=== PATIENT | male | born 1960 | race Caucasian/White ===

== ENCOUNTER 2017-01-27 19:12 | Emergency (ER) | payer BC ==
[~2017-01-27 19:12] MED LIST: Iopamidol 370 76% 100 ML VIAL ONE
[2017-01-27 19:42] LABS: #Basophils 0.2 thou/uL (0.0-0.2); #Eosinphils 0.3 thou/uL (0.0-0.7); #Lymphocytes 3.4 thou/uL (1.20-3.40); #Neutrophils 5.1 thou/uL (1.40-6.50); %Basophils 1.5 % (0.0-1.0); %Eosinophils 2.9 % (0.0-10.0); %Lymphocytes 34.2 % (21.0-51.0); %Monocytes 9.9 % (0.0-10.0); Hematocrit 45.6 % (42.0-52.0); Mean Platelet Volume 9.4 fL (7.4-10.4); Red Blood Cell (RBC) Count 5.03 mill/uL (4.70-6.10); White Blood Cell (WBC) Count 9.9 thou/uL (4.8-10.8)
[2017-01-27 19:56] LABS: ALT (SGPT) 47 U/L (8-55); AST (SGOT) 28 U/L (5-34); Alkaline Phosphatase 60 U/L (40-150); Anion Gap 12 mmol/L (10-20); BUN (Urea Nitrogen) 13 mg/dL (8.4-25.7); Bilirubin, Total 0.3 mg/dL (0.2-1.2); Calc. Creatinine Clearance 0 mL/min (70-130); Calcium 9.3 mg/dL (7.8-10.44); Carbon Dioxide 26 mmol/L (22-29); Chloride 106 mmol/L (98-107); Estimated GFR-MDRD Greater than 90; Protein, Total 7.2 g/dL (6.0-8.3)
[2017-01-27 19:59] LABS: Bilirubin Negative (Negative); Blood, Urine Trace (Negative); Glucose, Urine (Dipstick) Negative (Negative); Ketone, Urine Negative (Negative); Nitrite Negative (Negative); Protein, Urine (Dipstick) Negative (Neg-Trace); Urobilinogen 0.2 mg/dL (0.2-1.0)
[2017-01-27 20:05] LABS: Bacteria/HPF Rare-Few HPF (None Seen); RBC/HPF 0-3 HPF (0-3); Squamous Epithelial None Seen HPF (0-3); WBC/HPF None Seen HPF (0-3)
--- NOTE | 2017-01-27 21:27 | CT ---
ABDOMEN AND PELVIC CT WITH CONTRAST: Comparison: None. Indication: Abdominal pain, chronic hernia. FINDINGS: Evidence of prior cholecystectomy with prominent focal area of biliary opacification which may relate to reservoir effect, status post cholecystectomy. No evidence of adrenal mass or hydronephrosis. Spl een is unremarkable. No pancreatic inflammation. Bowel is incompletely assessed without enteric contr ast. There is no evidence of free air or portal venous gas. The imaged lung bases reveal no significa nt pathology. Imaged aorta is of normal caliber, with mild calcification. There is prominence of the prostate gland with mild internal calcification. There is a patchoulis fat containing right inguinal ring without inflammation. Small fat containing periumbilical hernia is present. There is scattered o sseous degenerative change. IMPRESSION: No acute abnormality identified. The bowel is limited in assessment without enteric contrast administ ration. POS: [facility]
== END 2017-01-27 20:35 | disposition home or self-care (01) ==
LOC: SCSER 19:12
DX: K42.9 Umbilical hernia without obstruction or gangrene (principal); F17.200 Nicotine dependence, unspecified, uncomplicated
CPT/HCPCS: 74177; 80053; 81003; 81015; 85025

== ENCOUNTER 2017-02-01 10:05 | Outpatient (CLI) | payer BC ==
--- NOTE | 2017-02-02 07:52 | EKG ---
Test Reason : Blood Pressure : / mmHG Vent. Rate : 067 BPM Atrial Rate : 067 BPM P-R Int : 212 ms QRS Dur : 084 ms QT Int : 370 ms P-R-T Axes : -03 056 071 degrees QTc Int : 390 ms Sinus rhythm with 1st degree A-V block Otherwise normal ECG When compared with ECG of 15-SEP-2009 18:30, No significant change was found Confirmed by SCAR TIRADO ([id number]) on 02/02/2017 7:51:53 AM Referred By: MARITZA Confirmed By:SCAR TIRADO
== END 2017-02-01 10:06 | disposition home or self-care (01) ==
LOC: LABBT 10:05
PROVIDERS: ATTEND Specialist
DX: Z01.818 Encounter for other preprocedural examination (principal); K42.9 Umbilical hernia without obstruction or gangrene
CPT/HCPCS: 93005; 93010

== ENCOUNTER 2017-02-04 10:19 | Day surgery (SDC) | payer BC ==
[2017-02-01 10:35] VITALS: BMI 37.8
--- NOTE | 2017-02-01 12:50 | HP ---
HISTORY OF PRESENT ILLNESS: A 56-year-old male patient who has had an umbilical hernia for more than 15 years, more recently has been bothersome. He has been in the emergency room on one occasion for evaluation where a CAT scan was performed that was normal. This was reduced, he reduced himself on a nother occasion and he desires repair. Plan is to repair this in an open fashion using mesh possibly and risks of infection, bleeding, reoperation, recurrence of hernia explained and he consents. TOBACCO: None. MEDICATIONS: None. TOBACCO: None. ALLERGIES: None. MEDICATIONS: None routinely. PAST SURGICAL HISTORY: Colonoscopy in the past, normal 2008. Dislocated knee with popliteal artery repair using vein reversed from left leg and cholecystectomy in the past, tonsillectomy, sinus surger y. PAST MEDICAL HISTORY: Noncontributory. 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 REVIEW OF SYSTEMS: Ten point noncontributory. PHYSICAL EXAMINATION: VITAL SIGNS: 256 pounds, 5 feet 9 inches, 37 BMI, 125/73, 66, 98.2 degrees. HEENT: Unremarkable. LUNGS: Clear to auscultation. CARDIAC: Regular rate and rhythm without murmur or gallop. ABDOMEN: Soft, nontender. Slightly obese. Umbilical hernia with the tube approximately 2.[address] reducible. ASSESSMENT AND PLAN: Symptomatic umbilical hernia. We will plan repair, possibly using mesh. Risk of infection, bleeding, reoperation, recurrence of hernia explained. He consents.
[2017-02-04] MEDS ORDERED: Ketorolac Tromethamine 30 MG/ML VIAL ONE (11:00)
[2017-02-04] MEDS ORDERED: CEFAZOLIN/Water 2 GM/20 ML SYRINGE ONE (11:00)
[2017-02-04] MEDS ORDERED: Bupivacaine/Epinephrine 0.25% 30 ML VIAL ONE (11:24)
[2017-02-04] MEDS ORDERED: Fentanyl 100 MCG/2 ML VIAL ONE ×2 (11:47)
--- NOTE | 2017-02-04 13:09 | OP ---
DATE OF PROCEDURE: 02/04/2017 PREOPERATIVE DIAGNOSIS: Umbilical hernia, symptomatic painful. POSTOPERATIVE DIAGNOSIS: Umbilical hernia, symptomatic painful. PROCEDURES: PVP 4.2 cm preperitoneal reinforcement of primary fascial closure of umbilical hernia pa [id number]. SURGEON: Dr. Jass Carroll ANESTHESIA: General. Local 0.25% Marcaine with epinephrine, 30 mL, mixed with 2% Xylocaine, 10 mL t otal volume mixture used. DESCRIPTION OF PROCEDURE: Patient was taken to the operating room where under general anesthesia, ab domen was clipped of hair, prepared with ChloraPrep, draped in routine fashion. Local anesthetic inf iltrated into skin and subcutaneous tissue about the operative site. Infraumbilical incision made an d carried down through the skin and subcutaneous tissue. Umbilical hernia defect identified, dissect ed free of fatty tissue superiorly and inferiorly and the preperitoneal space potentiated and dissect ed free. Good hemostasis noted as the PVP mesh 4.2 cm inserted, flattened and straps used to control it as fascia approximated [id number] with interrupted sutures of 0 PDS pop-offs incorporating m esh approximation in the fascial closure. Straps removed, knots tied. Subcutaneous tissues approxim ated converting the umbilicus to the fascia with 3-0 Monocryl and subcutaneous tissues approximated w ith continuous suture of 3-0 Monocryl and skin with continuous subcutaneous suture of 4-0 Monocryl an d DermaGlue applied. The patient tolerated the procedure well.
[2017-02-04] MEDS ORDERED: Propofol 200 MG/20 ML VIAL ONE (15:25)
[2017-02-04] MEDS ORDERED: Glycopyrrolate 0.2 MG/ML 5 ML SYRINGE ONE (15:25)
[2017-02-04] MEDS ORDERED: Lidocaine 1% PF 5 ML VIAL ONE (15:25)
[2017-02-04] MEDS ORDERED: traMADol HCl 50 MG TAB ONE (15:27)
== END 2017-02-04 15:40 | disposition home or self-care (01) ==
LOC: SDC 10:19
PROVIDERS: ATTEND Specialist
PROC: 0WUF0JZ Supplement Abdominal Wall with Synthetic Substitute, Open Approach (ICD-10-PCS; principal; 2017-02-04)
DX: K42.9 Umbilical hernia without obstruction or gangrene (principal); Z90.49 Acquired absence of other specified parts of digestive tract; Z98.890 Other specified postprocedural states
CPT/HCPCS: J0131; J1885; J2001; J2704; J3010

== ENCOUNTER 2017-02-28 21:16 | Inpatient (IN) | payer BC, OTHER ==
[2017-02-28 22:16] LABS: #Basophils 0.1 thou/uL (0.0-0.2); #Eosinphils 0.2 thou/uL (0.0-0.7); #Lymphocytes 2.1 thou/uL (1.20-3.40); #Monocytes 1.8 thou/uL (0.11-0.59); #Neutrophils 14.4 thou/uL (1.40-6.50); %Basophils 0.4 % (0.0-1.0); %Eosinophils 1.2 % (0.0-10.0); %Lymphocytes 11.3 % (21.0-51.0); %Monocytes 9.8 % (0.0-10.0); %Neutrophils 77.2 % (42.0-75.0); Hemoglobin 16.1 g/dL (14.0-18.0); Mean Corpuscular HGB CONC 33.7 g/dL (32.0-36.0); Mean Corpuscular Hemoglobin 32.1 pg (27.0-31.0); Mean Corpuscular Volume 95.1 fl (80.0-94.0); Mean Platelet Volume 7.9 fL (7.4-10.4); Platelet Count 265 thou/uL (130-400); RBC Distribution Width 12.5 % (11.5-14.5); Red Blood Cell (RBC) Count 5.02 mill/uL (4.70-6.10); White Blood Cell (WBC) Count 18.7 thou/uL (4.8-10.8)
[2017-02-28 22:36] LABS: ALT (SGPT) 36 U/L (8-55); AST (SGOT) 20 U/L (5-34); Alkaline Phosphatase 81 U/L (40-150); Anion Gap 13 mmol/L (10-20); BUN (Urea Nitrogen) 14 mg/dL (8.4-25.7); Bilirubin, Total 0.6 mg/dL (0.2-1.2); Calc. Creatinine Clearance 0 mL/min (70-130); Calcium 9.4 mg/dL (7.8-10.44); Carbon Dioxide 22 mmol/L (22-29); Chloride 104 mmol/L (98-107); Estimated GFR-MDRD Greater than 90; Globulin 3.3 g/dL (2.4-3.5); Glucose 123 mg/dL (70-105); Potassium 3.9 mmol/L (3.5-5.1); Protein, Total 7.3 g/dL (6.0-8.3); Sodium 135 mmol/L (136-145)
[2017-02-28] MEDS ORDERED: Meropenem 1 GM in Syringe 20 ML SLOW IVP SCH (23:00)
[2017-03-01 01:15] LABS: Troponin I Less than 0.010 ng/mL (< 0.028)
[2017-03-01 01:17] LABS: Bilirubin Negative (Negative); Blood, Urine Negative (Negative); Clarity CLEAR (Clear); Glucose, Urine (Dipstick) Negative (Negative); Leukocyte Negative (Negative); Nitrite Negative (Negative); Protein, Urine (Dipstick) 30 mg/dL (Neg-Trace); Specific Gravity, Urine 1.037 (1.002-1.036); Urobilinogen 0.2 mg/dL (0.2-1.0)
[2017-03-01 01:20] LABS: Bacteria/HPF None Seen HPF (None Seen); Hyaline Casts/LPF 0-3 HYALINE CAST LPF (0-3 Hyaline); Pathc Cast-AUWi Flag 0.13 (0-2.49); Squamous Epithelial 0-3 HPF (0-3); WBC/HPF 0-3 HPF (0-3)
[2017-03-01 03:53] VITALS: BMI 36.8
[2017-03-01] MEDS ORDERED: Acetaminophen 1,000 MG in Premix Bag 1 BAG IVPB PRN (05:11)
[2017-03-01 06:17] LABS: Troponin I Less than 0.010 ng/mL (< 0.028)
--- NOTE | 2017-03-01 06:57 | HP ---
CHIEF COMPLAINT: Abdominal infection. HISTORY OF PRESENT ILLNESS: The patient is a 57-year-old male, who underwent an umbilical hernia rep air with mesh on 02/04/2017. He was repaired with a 4.2 cm Proceed mesh with [id number] techniq ue. He said that he has been having some postop pain and was supposed to see Dr. Carroll about 5 days ago, but apparently he was called out for an emergency and he did not get to see him. He said that, 2 days ago, it started leaking purulent fluid and turned red. Last night, he developed a fever to 1 02. He has had nausea, no vomiting. PAST MEDICAL HISTORY: Significant for obesity PAST SURGICAL HISTORY: He had repair of popliteal artery injury from knee dislocation. He has had a knee surgery, sinus surgery, cholecystectomy as well as a tonsillectomy. MEDICATIONS: He is on no medications. FAMILY HISTORY: He has a sensitivity to HYDROCODONE. 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 PHYSICAL EXAMINATION: VITAL SIGNS: Temperature 102, pulse 100, blood pressure 138/73. GENERAL: Obese male. HEENT: Unremarkable. LUNGS: Clear. HEART: Regular rate and rhythm. ABDOMEN: He has got about 15 cm of erythema around a subumbilical incision. LABORATORY AND X-RAY FINDINGS: White count is 18.7, H and H 16 and 47, platelet count 265. Electrol ytes elevated, glucose 123. ASSESSMENT: Wound infection, cellulitis. PLAN: I and D, irrigation, wound VAC, removal of mesh. CONSENT: I have discussed the planned procedure as well as risk of bleeding, infection, recurrence o f the hernia, need for further surgery. He understands and gives informed consent.
[2017-03-01] MEDS ORDERED: Fentanyl 100 MCG/2 ML VIAL ONE ×2 (07:30)
[2017-03-01] MEDS ORDERED: Piperacillin/Tazobactam 3.375 GM VIAL ONE (08:24)
[2017-03-01] MEDS ORDERED: Morphine 4 MG/ML VIAL SLOW IVP PRN ×2 (08:51)
[2017-03-01] MEDS ORDERED: hydrALAZINE 20 MG/ML VIAL SLOW IVP PRN (08:51)
[2017-03-01] MEDS ORDERED: Ondansetron HCl/PF 4 MG/2 ML Vial IVP PRN ×2 (08:51→09:40)
[2017-03-01] MEDS ORDERED: Dextrose 5% in Water 1,000 ML IV PRN (08:51)
[2017-03-01] MEDS ORDERED: Promethazine HCl 25 MG/ML VIAL IM PRN ×2 (08:51→09:40)
[2017-03-01] MEDS ORDERED: Dextrose 50% Abboject 50 ML SYRINGE SLOW IVP PRN (08:51)
[2017-03-01] MEDS ORDERED: Acetaminophen 325 MG TAB PO PRN (08:51)
[2017-03-01] MEDS ORDERED: Vancomycin HCl 1.25 GM in Sodium Chloride 0.9% 250 ML 250 ML IVPB SCH ×2 (09:00→23:00)
--- NOTE | 2017-03-01 09:22 | OP ---
PREOPERATIVE DIAGNOSIS: Wound infection. SURGEON: Lucio Lindo M.D. PROCEDURE PERFORMED: Incision and drainage of an umbilical incision with removal of infected mesh an d primary closure of umbilical hernia with suture. INDICATIONS: This is a 57-year-old male, who is about 3 weeks status post umbilical hernia repair wi th mesh. He developed progressive painful red incision and developed fever. FINDINGS: The mesh was covered by pus, both posterior and anterior to it. Cultures were obtained. PROCEDURE: After informed consent was obtained, the patient was taken to the operating room and give n general endotracheal anesthesia. He was placed in the supine position. His abdomen was prepped an d draped in the usual fashion. A transverse incision was performed through the old scar. Subcu divi ded sharply down to the mesh. There was a pocket of very thick yellow purulent fluid that was cultur ed. Eventually, I was able to remove the old sutures as well as found the mesh. The mesh was remove d. There was pus underneath the mesh. This was irrigated and removed. Then the wound was completel y irrigated with the pulse medical billing assistant. Then the fascia was closed transversely with interrupted figur e-of-eights of #1 Prolene. Hemostasis achieved with electrocautery. Wound care was consulted to chivo chavez a wound VAC. The patient tolerated the procedure well and transferred to recovery in good conditi on. Sponge and needle count verified correct x2.
[2017-03-01] MEDS ORDERED: Promethazine HCl 25 MG/ML VIAL SLOW IVP PRN (09:40)
[2017-03-01 10:17] LABS: Vancomycin, Trough Less than 1.1 ug/mL
[2017-03-01] MEDS: Famotidine 20 MG TAB PO SCH ×3 (10:29→21:26)
[2017-03-01] MEDS: Sodium Chloride 0.9% 1,000 ML IV SCH ×2 (11:07→21:26)
[2017-03-01] MEDS: Famotidine/PF 20 mg/2ml Vial SLOW IVP SCH ×2 (11:11→21:24)
[2017-03-01] MEDS: Piperacillin/Tazobactam 3.375 GM in Sodium Chloride 0.9% 100 ML IVPB SCH ×2 (15:07→21:25)
[2017-03-01] MEDS: Ketorolac Tromethamine 30 MG/ML VIAL IVP SCH ×2 (15:07→21:25)
[2017-03-01 15:59] LABS: Vancomycin, Peak 12.6 ug/mL (20.0-40.0)
[2017-03-01] MEDS ORDERED: Lidocaine 1% PF 5 ML VIAL ONE (17:10)
[2017-03-01] MEDS ORDERED: Succinylcholine Chloride 20 MG/ML 10 ml SYRINGE FS ONE (17:10)
[2017-03-01] MEDS ORDERED: Ketorolac Tromethamine 30 MG/ML VIAL ONE (17:10)
[2017-03-01] MEDS ORDERED: Propofol 200 MG/20 ML VIAL ONE (17:10)
[2017-03-01] MEDS ORDERED: Ondansetron HCl/PF 4 MG/2 ML Vial ONE (17:10)
[2017-03-01] MEDS ORDERED: Dexamethasone 20 MG/5 ML VIAL ONE (17:10)
[2017-03-01] MEDS ORDERED: Glycopyrrolate 0.2 MG/ML 5 ML SYRINGE ONE (17:10)
[2017-03-01 22:30] LABS: Troponin I Less than 0.010 ng/mL (< 0.028)
[2017-03-02] MEDS: Piperacillin/Tazobactam 3.375 GM in Sodium Chloride 0.9% 100 ML IVPB SCH ×3 (02:55→16:03)
[2017-03-02] MEDS: Ketorolac Tromethamine 30 MG/ML VIAL IVP SCH ×4 (02:56→22:02)
[2017-03-02] MEDS ORDERED: Enoxaparin Sodium 40 MG/0.4 ML SYRINGE SC SCH (06:00)
[2017-03-02] MEDS: Sodium Chloride 0.9% 1,000 ML IV SCH ×2 (06:13→23:29)
[2017-03-02 06:15] LABS: Anion Gap 13 mmol/L (10-20); BUN (Urea Nitrogen) 12 mg/dL (8.4-25.7); Calc. Creatinine Clearance 161 mL/min (70-130); Calcium 8.9 mg/dL (7.8-10.44); Carbon Dioxide 22 mmol/L (22-29); Chloride 107 mmol/L (98-107); Estimated GFR-MDRD Greater than 90; Glucose 135 mg/dL (70-105); Potassium 4.2 mmol/L (3.5-5.1); Sodium 138 mmol/L (136-145)
[2017-03-02 06:45] LABS: Band 11 % (5-11); Hemoglobin 14.3 g/dL (14.0-18.0); Lymphocytes 14 % (21-51); MDiff Complete? YES; Mean Corpuscular HGB CONC 32.7 g/dL (32.0-36.0); Mean Corpuscular Hemoglobin 31.4 pg (27.0-31.0); Mean Corpuscular Volume 95.9 fl (80.0-94.0); Mean Platelet Volume 8.2 fL (7.4-10.4); Monocytes 4 % (0-10); Neutrophil 70 % (42-75); PLT Morphology Comment Appears Adequate; Platelet Count 242 thou/uL (130-400); RBC Distribution Width 12.4 % (11.5-14.5); RBC Morphology Normal; Reactive Lymphocytes 1 % (0-10); Red Blood Cell (RBC) Count 4.55 mill/uL (4.70-6.10); White Blood Cell (WBC) Count 26.1 thou/uL (4.8-10.8)
[2017-03-02] MEDS: Famotidine 20 MG TAB PO SCH ×2 (08:22→22:01)
[2017-03-02] MEDS: Vancomycin HCl 1.75 GM in Sodium Chloride 0.9% 500 ML IVPB SCH ×2 (11:06→23:30)
[2017-03-02] MEDS: Famotidine/PF 20 mg/2ml Vial SLOW IVP SCH ×2 (11:50→22:01)
[2017-03-02 12:04] LABS: Vancomycin, Trough 7.9 ug/mL
[2017-03-02 16:08] LABS: Vancomycin, Peak 24.2 ug/mL (20.0-40.0)
[2017-03-02] MEDS: Piperacillin-Tazo-Dextrose,Iso 3.375 GM in Premix Bag 1 BAG IVPB SCH (20:40)
[2017-03-03] MEDS: Piperacillin-Tazo-Dextrose,Iso 3.375 GM in Premix Bag 1 BAG IVPB SCH ×4 (03:31→19:49)
[2017-03-03] MEDS: Ketorolac Tromethamine 30 MG/ML VIAL IVP SCH ×4 (03:33→21:24)
[2017-03-03 05:57] LABS: #Basophils 0.1 thou/uL (0.0-0.2); #Eosinphils 0.4 thou/uL (0.0-0.7); #Lymphocytes 3.3 thou/uL (1.20-3.40); #Monocytes 1.1 thou/uL (0.11-0.59); #Neutrophils 7.6 thou/uL (1.40-6.50); %Basophils 0.5 % (0.0-1.0); %Eosinophils 3.2 % (0.0-10.0); %Lymphocytes 26.4 % (21.0-51.0); %Monocytes 8.5 % (0.0-10.0); %Neutrophils 61.5 % (42.0-75.0); Hemoglobin 13.5 g/dL (14.0-18.0); Mean Corpuscular Hemoglobin 31.8 pg (27.0-31.0); Mean Corpuscular Volume 96.4 fl (80.0-94.0); Mean Platelet Volume 8.4 fL (7.4-10.4); Platelet Count 258 thou/uL (130-400); RBC Distribution Width 12.5 % (11.5-14.5); Red Blood Cell (RBC) Count 4.26 mill/uL (4.70-6.10); White Blood Cell (WBC) Count 12.4 thou/uL (4.8-10.8)
[2017-03-03] MEDS: Enoxaparin Sodium 40 MG/0.4 ML SYRINGE SC SCH (09:34)
[2017-03-03] MEDS: Famotidine 20 MG TAB PO SCH ×2 (09:34→21:24)
[2017-03-03] MEDS: Famotidine/PF 20 mg/2ml Vial SLOW IVP SCH ×2 (10:47→21:23)
[2017-03-03] MEDS: Sodium Chloride 0.9% 1,000 ML IV SCH ×2 (10:48→19:49)
[2017-03-03] MEDS: Vancomycin HCl 1.75 GM in Sodium Chloride 0.9% 500 ML IVPB SCH ×2 (10:58→23:11)
[2017-03-04] MEDS: Piperacillin-Tazo-Dextrose,Iso 3.375 GM in Premix Bag 1 BAG IVPB SCH ×2 (02:11→09:18)
[2017-03-04] MEDS: Ketorolac Tromethamine 30 MG/ML VIAL IVP SCH ×2 (02:11→09:19)
[2017-03-04 08:20] VITALS: BP 133/86; TEMP 97.7
[2017-03-04] MEDS: Enoxaparin Sodium 40 MG/0.4 ML SYRINGE SC SCH (09:19)
[2017-03-04] MEDS: Famotidine 20 MG TAB PO SCH (09:19)
[2017-03-04] MEDS: Famotidine/PF 20 mg/2ml Vial SLOW IVP SCH (09:20)
[2017-03-04] MEDS: Sodium Chloride 0.9% 1,000 ML IV SCH (09:25)
--- NOTE | 2017-03-04 10:04 | PRG ---
DATE OF SERVICE: 03/04/2017 Mr. Martinez is doing well with the wound VAC, which has been approved for home use. He has an [facility] appointment for change on Tuesday and . Cultures reveal Streptococcus. The patient has been on vancomycin and Zosyn. ABDOMEN: Soft cellulitis, resolved. Wound VAC in place, changed yesterday due to change next week. ASSESSMENT AND PLAN: Infected mesh, requiring mesh removal, performed by Dr. Lindo in my absence. W ound was repaired primarily without mesh. Currently, the patient is doing well. He is being dischar [facility] home with Augmentin for 7 days and follow up in my office in a week or two. 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
--- NOTE | 2017-03-04 10:11 | DIS ---
DATE OF ADMISSION: 02/28/2017 DATE OF DISCHARGE: 03/04/2017 DISCHARGE DIAGNOSES: Infected mesh, umbilical hernia site, hernia performed on 02/04/2017 by me. HOSPITAL COURSE: Patient underwent the above-mentioned umbilical hernia repair with mesh on 02/05/20 17 and was seen in my office last week, noted purulent drainage after that visit. Prior to presentin g to the hospital, seen by Dr. Lindo in my absence, undergoing on 03/01/2017, removal of umbilical me sh, drainage of abscess, culture revealed Streptococcus. The umbilical hernia was repaired with #1 P rolene [id number] sutures. The patient had a wound VAC postoperatively, cellulitis resolved wit h vancomycin and Zosyn and is sent home with Augmentin for 7 days. He has an outpatient wound care a ppointment and he will follow up with Dr. Carroll in 2 weeks, but I will see him in the outpatient wou nd care next week.
== END 2017-03-04 12:35 | disposition home or self-care (01) | DRG 857 ==
LOC: ERS 21:16 → SURG A 22:20
PROVIDERS: ADMIT Surgery; ATTEND Surgery
PROC: 0WPF0JZ Removal of Synthetic Substitute from Abdominal Wall, Open Approach (ICD-10-PCS; principal; 2017-03-01)
PROC: 0WQF0ZZ Repair Abdominal Wall, Open Approach (ICD-10-PCS; 2017-03-01)
DX: T81.4XXA Infection following a procedure, initial encounter (principal); T85.79XA Infection and inflammatory reaction due to other internal prosthetic devices, implants and grafts, initial encounter; L03.311 Cellulitis of abdominal wall; B95.5 Unspecified streptococcus as the cause of diseases classified elsewhere; E66.9 Obesity, unspecified; Z68.36 Body mass index [BMI] 36.0-36.9, adult; Z88.5 Allergy status to narcotic agent
CPT/HCPCS: 36415; 80048; 80053; 80202; 81001; 84484; 85025; 87040; 87070; 87077; 87205; 96374; 99406; A4216; J0131; J1100; J1650; J1885; J2001; J2185; J2405; J2543; J2704; J3010; J3370; J7050

== ENCOUNTER 2017-03-07 07:53 | Outpatient (CLI) | payer OTHER ==
[2017-03-07] MEDS ORDERED: Sodium Chloride 0.9% 15 ML NEB ONE (11:00)
== END 2017-03-07 07:54 | disposition home or self-care (01) ==
LOC: WCC 07:53
PROVIDERS: ATTEND Family Medicine
DX: T81.89XD Other complications of procedures, not elsewhere classified, subsequent encounter (principal)
CPT/HCPCS: 97605; A4218

== ENCOUNTER 2017-03-10 13:08 | Outpatient (CLI) | payer OTHER | END 2017-03-10 13:09 | disposition home or self-care (01) | LOC: WCC 13:08 | PROVIDERS: ATTEND Family Medicine | DX: T81.89XD Other complications of procedures, not elsewhere classified, subsequent encounter (principal) | CPT/HCPCS: 97605 ==

== ENCOUNTER 2017-03-14 11:15 | Outpatient (CLI) | payer OTHER ==
[2017-03-14] MEDS ORDERED: Sodium Chloride 0.9% 15 ML NEB ONE (13:32)
== END 2017-03-14 11:16 | disposition home or self-care (01) ==
LOC: WCC 11:15
PROVIDERS: ATTEND Family Medicine
DX: T81.89XD Other complications of procedures, not elsewhere classified, subsequent encounter (principal)
CPT/HCPCS: 97602; A4218

== ENCOUNTER 2020-03-26 15:24 | Outpatient (CLI) | payer BC ==
--- NOTE | 2020-03-26 15:52 | RAD ---
LEFT ELBOW TWO VIEWS: 03/26/20 HISTORY: Injury, left elbow pain. FINDINGS/IMPRESSION: No fracture, dislocation or bony destruction is identified. POS: OFF
== END 2020-03-26 15:25 | disposition home or self-care (01) ==
LOC: BICRAD 15:24
PROVIDERS: ATTEND Family Medicine
DX: M25.522 Pain in left elbow (principal)

== ENCOUNTER 2021-07-06 14:16 | Outpatient (CLI) | payer BC | END 2021-07-06 14:17 | disposition home or self-care (01) | LOC: BICRAD 14:16 | PROVIDERS: ATTEND Family Medicine | DX: R59.9 Enlarged lymph nodes, unspecified (principal) | CPT/HCPCS: 71046 ==

== ENCOUNTER 2021-11-07 21:02 | Observation (INO) | payer BC ==
[2021-11-07 22:39] LABS: #Basophils 0.1 thou/uL (0.0-0.2); #Eosinphils 0.3 thou/uL (0.0-0.7); #Lymphocytes 3.2 thou/uL (1.20-3.40); #Neutrophils 5.1 thou/uL (1.40-6.50); %Basophils 0.6 % (0.0-1.0); %Eosinophils 3.6 % (0.0-10.0); %Lymphocytes 33.1 % (21.0-51.0); %Monocytes 9.9 % (0.0-10.0); %Neutrophils 52.8 % (42.0-75.0); Hemoglobin 15.2 g/dL (14.0-18.0); Mean Corpuscular HGB CONC 33.6 g/dL (32.0-36.0); Mean Corpuscular Hemoglobin 31.8 pg (27.0-31.0); Mean Corpuscular Volume 94.6 fL (78.0-98.0); Mean Platelet Volume 8.3 fL (7.4-10.4); Platelet Count 236 thou/uL (130-400); RBC Distribution Width 12.5 % (11.5-14.5); Red Blood Cell (RBC) Count 4.78 mill/uL (4.70-6.10); White Blood Cell (WBC) Count 9.7 thou/uL (4.8-10.8)
[2021-11-07 23:01] LABS: ALT (SGPT) 24 U/L (8-55); AST (SGOT) 19 U/L (5-34); Alkaline Phosphatase 63 U/L (40-110); Anion Gap 13 mmol/L (10-20); BUN (Urea Nitrogen) 11 mg/dL (8.4-25.7); Bilirubin, Total 0.2 mg/dL (0.2-1.2); Calc. Creatinine Clearance 0 mL/min (70-130); Calcium 9.1 mg/dL (7.8-10.44); Carbon Dioxide 23 mmol/L (22-29); Chloride 106 mmol/L (98-107); Estimated GFR 100; Globulin 2.8 g/dL (2.4-3.5); Glucose 163 mg/dL (70-105); Potassium 4.1 mmol/L (3.5-5.1); Protein, Total 6.8 g/dL (6.0-8.3); Sodium 138 mmol/L (136-145)
[2021-11-07] MEDS ORDERED: Aspirin Chewable 81 MG TAB ONE ×2 (23:36→23:38)
[2021-11-07] MEDS ORDERED: Nitroglycerin 0.4 MG TAB 1 EACH ONE (23:49)
[2021-11-08] MEDS ORDERED: Acetaminophen 325 MG TAB PO PRN (02:44)
[2021-11-08] MEDS ORDERED: Ondansetron PF 4 MG/2 ML Vial IVP PRN (02:44)
[2021-11-08] MEDS ORDERED: Nitroglycerin 0.4 MG TAB (25 Tab Bottle) SL PRN (02:46)
[2021-11-08 05:03] LABS: #Basophils 0.1 thou/uL (0.0-0.2); #Eosinphils 0.3 thou/uL (0.0-0.7); #Lymphocytes 3.2 thou/uL (1.20-3.40); #Monocytes 0.9 thou/uL (0.11-0.59); %Basophils 0.8 % (0.0-1.0); %Eosinophils 3.8 % (0.0-10.0); %Lymphocytes 37.9 % (21.0-51.0); %Monocytes 10.1 % (0.0-10.0); %Neutrophils 47.4 % (42.0-75.0); Hemoglobin 14.2 g/dL (14.0-18.0); Mean Corpuscular HGB CONC 33.2 g/dL (32.0-36.0); Mean Corpuscular Hemoglobin 31.5 pg (27.0-31.0); Mean Corpuscular Volume 94.8 fL (78.0-98.0); Mean Platelet Volume 8.3 fL (7.4-10.4); Platelet Count 235 thou/uL (130-400); RBC Distribution Width 12.4 % (11.5-14.5); Red Blood Cell (RBC) Count 4.52 mill/uL (4.70-6.10); White Blood Cell (WBC) Count 8.4 thou/uL (4.8-10.8)
[2021-11-08 05:25] LABS: Anion Gap 9 mmol/L (10-20); BUN (Urea Nitrogen) 9 mg/dL (8.4-25.7); Calc. Creatinine Clearance 0 mL/min (70-130); Calcium 8.2 mg/dL (7.8-10.44); Carbon Dioxide 23 mmol/L (22-29); Cardiac Risk 3.4 (Less than 4.5); Chloride 109 mmol/L (98-107); Cholesterol 124 mg/dl (< 200 Desired); Estimated GFR 104; Glucose 106 mg/dL (70-105); HDL Cholesterol 37 mg/dL (>60 Neg Risk); LDL Cholesterol, Calculated 75 mg/dL; Potassium 4.1 mmol/L (3.5-5.1); Sodium 137 mmol/L (136-145); Triglycerides 61 mg/dL (Less than 150)
[2021-11-08 05:46] LABS: Troponin I Less than 0.010 ng/mL (< 0.028)
[2021-11-08 07:39] LABS: SARS-CoV-2 NAA Rapid Test Not Detected (NotDetected)
[2021-11-08] MEDS ORDERED: Enoxaparin Sodium 30 MG/0.3 ML SYRINGE SC SCH (09:00)
[2021-11-08] MEDS ORDERED: Aspirin Chewable 81 MG TAB ONE (09:01)
[2021-11-08] MEDS ORDERED: Famotidine 20 MG TAB ONE (09:01)
[2021-11-08] MEDS: Aspirin 81 mg Enteric Coated Tablet PO SCH (09:05)
[2021-11-08] MEDS: Famotidine 20 MG TAB PO SCH ×2 (09:05→20:15)
[2021-11-08] MEDS ORDERED: Acetaminophen 325 MG TAB ONE ×2 (09:06→09:09)
[2021-11-08 10:44] VITALS: BMI 41.2
[2021-11-08] MEDS ORDERED: Doxycycline 100 MG CAP PO SCH ×2 (12:24→12:30)
[2021-11-08] MEDS: Doxycycline 100 MG CAP PO SCH (20:15)
[2021-11-08] MEDS ORDERED: Atorvastatin Calcium 20 MG TAB PO SCH (21:00)
[2021-11-09 05:32] LABS: Anion Gap 10 mmol/L (10-20); BUN (Urea Nitrogen) 9 mg/dL (8.4-25.7); Calc. Creatinine Clearance 164 mL/min (70-130); Calcium 8.9 mg/dL (7.8-10.44); Carbon Dioxide 26 mmol/L (22-29); Chloride 106 mmol/L (98-107); Estimated GFR 99; Glucose 110 mg/dL (70-105); Magnesium 1.9 mg/dL (1.6-2.6); Potassium 4.4 mmol/L (3.5-5.1); Sodium 138 mmol/L (136-145)
[2021-11-09] MEDS: Doxycycline 100 MG CAP PO SCH (08:34)
[2021-11-09] MEDS: Aspirin 81 mg Enteric Coated Tablet PO SCH (08:34)
[2021-11-09] MEDS: Famotidine 20 MG TAB PO SCH (08:34)
[2021-11-09 15:59] VITALS: BP 139/77; TEMP 97.7
== END 2021-11-09 18:02 | disposition home or self-care (01) ==
LOC: ERS 21:02 → ERHOLD 11-08 02:11 → 2SW 11-08 10:35
PROVIDERS: ADMIT Internal Medicine; ATTEND Internal Medicine
DX: R07.89 Other chest pain (principal); M79.602 Pain in left arm; R20.0 Anesthesia of skin; I51.7 Cardiomegaly; E66.9 Obesity, unspecified; Z68.41 Body mass index [BMI] 40.0-44.9, adult; Z82.49 Family history of ischemic heart disease and other diseases of the circulatory system; Z79.2 Long term (current) use of antibiotics; Z88.5 Allergy status to narcotic agent; Z20.822 Contact with and (suspected) exposure to COVID-19
CPT/HCPCS: 36415; 71045; 78452; 80048; 80053; 80061; 83735; 84100; 84484; 85025; 93005; 93017; 93306; 94760; A9500; G0378; J0153; U0002

== ENCOUNTER 2021-12-03 11:25 | Outpatient (CLI) | payer BC | END 2021-12-03 11:26 | disposition home or self-care (01) | LOC: RAD 11:25 | PROVIDERS: ATTEND Family Medicine | DX: M25.551 Pain in right hip (principal); M16.11 Unilateral primary osteoarthritis, right hip; T81.89XA Other complications of procedures, not elsewhere classified, initial encounter ==

== ENCOUNTER 2021-12-15 17:30 | Outpatient (CLI) | payer BC | END 2021-12-15 17:31 | disposition home or self-care (01) | LOC: SLEEPLAB 17:30 | PROVIDERS: ATTEND Family Medicine | DX: G47.33 Obstructive sleep apnea (adult) (pediatric) (principal); R53.83 Other fatigue; R06.83 Snoring; G47.00 Insomnia, unspecified; G25.81 Restless legs syndrome; E66.9 Obesity, unspecified; Z68.39 Body mass index [BMI] 39.0-39.9, adult | CPT/HCPCS: 95800 ==

== ENCOUNTER 2022-05-10 14:47 | Outpatient (CLI) | payer BC | END 2022-05-10 14:48 | disposition home or self-care (01) | LOC: RAD 14:47 | PROVIDERS: ATTEND Nurse Practitioner Family | DX: M25.512 Pain in left shoulder (principal); M19.012 Primary osteoarthritis, left shoulder ==